=== PATIENT | female | born 1955 | race Caucasian/White ===

== ENCOUNTER 2016-05-04 16:52 | Emergency (ER) | payer OTHER ==
[2016-05-04 17:06] VITALS: BP 167/55; PULSE 78; TEMP 98.3; BMI 40.3
--- NOTE | 2016-05-04 18:31 | PDOC ---
History of Present Illness - General Chief Complaint: Pain Stated Complaint: RT LEG INJURY Time Seen by Provider: 05/04/16 17:25 History Source: Patient Exam Limitations: No Limitations - History of Present Illness Initial Comments: 05/04/16 18:24 CC intermit pain and swelling to posterior right ankle x > 1 month Severity: reports: mild Pain Location: reports: lower extremity Method of Injury: Yes: other (no trauma) Past History - Past Medical History Allergies/Adverse Reactions: Allergies Allergy/AdvReac Type Severity Reaction Status Date / Time peanut Allergy Verified 05/04/16 17:01 Home Medications: Ambulatory Orders Atorvastatin Ca [Lipitor -] 40 mg PO HS tablet 07/13/14 Clopidogrel Bisulfate [Plavix] 75 mg PO DAILY #30 tablet 07/13/14 Metformin HCl 1,000 mg PO BID #14 tablet 07/13/14 Amlodipine Besylate 5 mg PO DAILY 12/08/15 Exenatide Microspheres [Bydureon Pen] 2 mg SQ WEEKLY 12/08/15 Olmesartan/Hydrochlorothiazide [Benicar Hct 40-25 mg Tablet] 1 each PO DAILY 07/19 Potassium Chloride 20 meq PO DAILY 12/08/15 Sitagliptin Phosphate [Januvia] 100 mg PO DAILY 12/08/15 Topiramate 50 mg PO HS 12/08/15 Asthma: Yes CVA: Yes (tia,stroke) Diabetes: Yes (NIDDM) HTN: Yes Hypercholesterolemia: Yes Kidney Stones: Yes - Immunization History Immunization Up to Date: No - Psycho/Social/Smoking Cessation Hx Anxiety: No Suicidal Ideation: No Smoking History: Never smoked Hx Alcohol Use: No Drug/Substance Use Hx: No Substance Use Type: None Review of Systems - Review of Systems Constitutional: No: Chills, Fever, Malaise HEENTM: Yes: Nose Congestion. No: Throat Pain, Throat Swelling Respiratory: No: Symptoms reported, Cough Cardiac (ROS): No: Symptoms Reported, Chest Pain Musculoskeletal: Yes: Other (posterior ankl pain) Integumentary: No: Bruising, Erythema, Lumps Neurological: No: Symptoms reported *Physical Exam - Vital Signs Last Vital Signs Temp Pulse Resp BP Pulse Ox 98.3 F 78 19 167/55 97 05/04/16 17:01 05/04/16 17:01 05/04/16 17:01 05/04/16 17:01 05/04/16 17:01 - Physical Exam General Appearance: Yes: Appropriately Dressed. No: Apparent Distress Neck: positive: Supple. negative: Tender, Rigid, Lymphadenopathy (R), Lymphadenopathy (L) Integumentary: positive: Normal Color, Dry, Warm, Other (Mild STS to posterior ankle; no skin break; no fluct. no redness) ED Treatment Course - RADIOLOGY Radiology Studies Ordered: Category Date Time Status ANKLE-RIGHT [RAD] Stat Radiology 05/04/16 17:43 Taken Medical Decision Making - Medical Decision Making 05/04/16 18:27 xray notes inferior and posterior calcaneal spurring; will refer to podiatry for further workup *DC/Admit/Observation/Transfer Diagnosis at time of Disposition: Heel spur Qualifiers: Laterality: right Qualified Code(s): M77.31 - Calcaneal spur, right foot - Discharge Dispostion Disposition: HOME Condition at time of disposition: Stable Admit: No - Referrals Referrals: Alonzo Galindo MD [Primary Care Provider] - Daxa Eisenberg MD [Staff Physician] - - Patient Instructions Additional Instructions: please call and follow up with local foot MD for further work up; tylenol for pain; wear soft heel cups
== END 2016-05-04 18:34 | disposition home or self-care (01) ==
LOC: JERFT 16:52
DX: M77.31 Calcaneal spur, right foot (principal); I10 Essential (primary) hypertension; E11.9 Type 2 diabetes mellitus without complications; Z79.84 Long term (current) use of oral hypoglycemic drugs; E78.00 Pure hypercholesterolemia, unspecified; Z86.73 Personal history of transient ischemic attack (TIA), and cerebral infarction without residual deficits
CPT/HCPCS: 73610-TC-RT; 99281-25